=== PATIENT | female | born 1985 | race African-American/Black ===

== ENCOUNTER 2017-05-19 22:51 | Emergency (ER) | payer MEDICAID ==
[~2017-05-19] VITALS: Ht 157.5 cm; Wt 57.2 kg
[2017-05-20 00:23] VITALS: BP 94/60
[2017-05-20] MEDS ORDERED: IBUPROFEN 600MG TABLET PO ONE (00:30)
== END 2017-05-20 12:34 | disposition left against medical advice (07) ==
LOC: ER 05-20 00:59
DX: M79.602 Pain in left arm (principal); M25.562 Pain in left knee; G35 Multiple sclerosis
CPT/HCPCS: 81025; 99284

== ENCOUNTER 2017-06-28 14:57 | Emergency (ER) | payer MEDICAID ==
[~2017-06-28] VITALS: Ht 162.6 cm; Wt 59.0 kg
[2017-06-28 17:59] LABS: BASOPHILS % 1.2 % (0.0-2.0); EOSINOPHILS % 0.5 % (0.0-5.0); HEMATOCRIT. 37.9 % (36.0-48.0); HEMOGLOBIN. 12.6 g/dL (12.0-16.0); LYMPHOCYTES % 33.1 % (20.0-50.0); MEAN CORPUSCULAR HEMOGLOBIN 28.4 pg (28.0-32.0); MEAN CORPUSCULAR VOLUME 85.3 fL (81.0-99.0); MONOCYTES % 6.3 % (2.0-8.0); NEUTROPHILS % 58.9 % (40.0-76.0); PLATELET 274 x1000/uL (130-400); RED BLOOD CELL COUNT 4.44 mill/uL (4.2-5.4)
[2017-06-28 18:03] LABS: CHLORIDE 105 mEq/L (98-107)
[2017-06-28 18:06] LABS: ETHANOL BLOOD < 10 mg/dL
[2017-06-28 18:19] LABS: HCG SCREEN NEGATIVE
[2017-06-28 19:20] LABS: CLARITY URINE TURBID (CLEAR); COLOR URINE YELLOW (YELLOW); KETONES URINE NEGATIVE (NEGATIVE); LEUKOCYTE ESTERASE URINE NEGATIVE (NEGATIVE); NITRITE URINE NEGATIVE (NEGATIVE); OCCULT BLOOD URINE NEGATIVE (NEGATIVE); PROTEIN URINE NEGATIVE (NEGATIVE); SPECIFIC GRAVITY URINE 1.026 (1.005-1.030)
[2017-06-28 19:46] LABS: *BARBITURATES SCREEN URINE NEGATIVE (NEGATIVE)
[2017-06-28 19:47] LABS: *AMPHETAMINES SCREEN URINE NEGATIVE (NEGATIVE); *BENZODIAZEPINES SCREEN URINE NEGATIVE (NEGATIVE); *COCAINE SCREEN URINE NEGATIVE (NEGATIVE); METHADONE URINE SCREEN NEGATIVE (NEGATIVE); OPIATES URINE SCREEN NEGATIVE (NEGATIVE); PHENCYCLIDINE URINE SCREEN NEGATIVE (NEGATIVE)
[2017-06-28 20:01] LABS: CANNABINOID URINE SCREEN PRESUMTIVE POSITIVE (NEGATIVE)
[2017-06-28 20:15] VITALS: BP 112/74
== END 2017-06-28 20:17 | disposition home or self-care (01) ==
LOC: ER 18:36
DX: G35 Multiple sclerosis (principal); R20.0 Anesthesia of skin; Z98.890 Other specified postprocedural states
CPT/HCPCS: 36415; 80048; 80305; 81003; 84703; 85025; 99284; G0482